=== PATIENT | female | born 1995 | race American Indian/Alaskan Native ===

== ENCOUNTER 2021-11-29 12:27 | Outpatient (CLI) | payer MEDICAID ==
[2021-11-29 12:52] VITALS: BP 122/76
[2021-11-29 13:45] LABS: Bilirubin,Urine NEG (Negative); Blood,Urine NEG (Negative); Color,Urine Yellow (Yellow); Protein,Urine <15 mg/dL mg/dL (Negative)
[2021-11-29 13:46] LABS: Mucus,Urine FEW /HPF; RBC,Urine < 1.0 /HPF (0.0-6.0)
[2021-11-29] MEDS ORDERED: LACTATED RINGERS 500 ML IV ONE (14:00)
[2021-11-29] MEDS ORDERED: ACETAMINOPHEN W/CODEINE 300-30 MG TAB PO ONE (14:55)
== END 2021-11-29 16:44 | disposition home or self-care (01) ==
LOC: TRG 12:27 → APU 12:29 → TRG 16:44
PROVIDERS: ATTEND Obstetrics & Gynecology
DX: O26.892 Other specified pregnancy related conditions, second trimester (principal); R10.9 Unspecified abdominal pain; Z3A.27 27 weeks gestation of pregnancy
CPT/HCPCS: 36415; 59025; 81001; 82731